=== PATIENT | female | born 1965 | race Caucasian/White ===

== ENCOUNTER 2020-09-01 02:28 | Emergency (ER) | payer OTHER, SELFPAY ==
--- NOTE | 2020-09-01 02:45 | ED.GENADULT ---
HPI - General Adult General Stated complaint: CP Source: RN notes reviewed History of Present Illness HPI narrative: Patient presents to emergency department from home via EMS for pain. Patient states she was diagnosed with shingles 3 days ago. The shingles is located over the right neck back and anterior chest states that she has been having severe pain with the shingles and came to the emergency department as evening for pain control she was seen at [facility] yesterday as well as her doctor the day before and is currently on antivirals. Patient states she took a hydrocodone 7 mg / 325 mg as well as a Ativan prior to arrival for the symptoms she has any fevers or chills shortness of breath abdominal pain nausea vomiting or any other symptoms Related Data Allergies Allergy/AdvReac Type Severity Reaction Status Date / Time No Known Allergies Allergy Unverified 11/03/17 08:44 Review of Systems Review of Systems: Narrative: Gen.: Denies fevers or chills ENT: Denies congestion Respiratory: Denies shortness of breath or cough CV: Denies chest pain or palpitations GI: Denies abdominal pain nausea, emesis Musculoskeletal: Denies back pain or muscle pain Neuro: Denies numbness, tingling, weakness or focal weakness Skin: See HPI Except as documented, all other systems reviewed and negative PMFSH Past Medical History Medical History (Updated 09/01/20 @ 02:49 by Kalpesh Garcia DO) Patient denies significant medical history Social History Social History (Updated 09/01/20 @ 02:47 by Kalpesh Garcia DO) Smoking status: Current every day smoker Exam Narrative: Exam Narrative: APPEARANCE: No acute distress, nontoxic, resting in bed EYES: EOMI HEENT: Normocephalic, atraumatic, OMM RESPIRATORY: No respiratory distress Clear to auscultation bilaterally with no rhonchi wheezing or rales. CARDIOVASCULAR: Regular rate and rhythm without murmurs rubs or gallops. ABDOMINAL: Soft, nontender, nondistended, no rebound or guarding MUSCULOSKELETAl: Moves all extremities. No clubbing, cyanosis or edema. NEURO: Awake and alert. Following commands, speech normal, no focal deficits SKIN:: Warm, dry. Erythematous rash with vesicles in different stages of healing over the right posterior neck into the right upper back and into the right superior anterior chest that does not cross midline consistent with shingles PSYCHIATRIC: Normal affect/mood, Course Course Emergency Course: Discussed with patient results of workup and diagnosis. Discussed need for follow-up with primary care, proper use of medication, and reasons to return to the emergency department. Patient understands and agrees to current treatment plan Medical Decision Making MDM Narrative Medical decision making narrative: Patient presents for shingles pain she has taken hydrocodone and some Ativan this evening and do not feel that any further narcotic medication is indicated she does have [place] at home I will give a dose of Toradol in the emergency department she is currently on antivirals which she will continue to take will discharge with follow-up with the PCP Discharge Plan Discharge Clinical Impression: Varicella zoster Patient Disposition: Home, Self-Care Condition: Stable Instructions: Antibiotic Form Additional Instructions: Return for chest pain shortness of breath or any other symptoms of concern Prescriptions: New ibuprofen [IBU] 600 mg tablet 600 mg PO Q6H PRN (Reason: pain) Qty: 20 RF: 0 Follow-up/Referrals: Fortino,Rolly Bailey MD [Primary Care Provider] - 2 Days
== END 2020-09-01 03:10 | disposition home or self-care (01) ==
LOC: ANHED 09-06 09:55
PROVIDERS: Emergency Provider Emergency Medicine; PCP Family Medicine
DX: B01.9 Varicella without complication (principal); F17.200 Nicotine dependence, unspecified, uncomplicated
CPT/HCPCS: 96374; 99284; J1885